=== PATIENT | male | born 1995 | race African-American/Black ===

== ENCOUNTER 2020-08-20 17:05 | Emergency (ER) | payer OTHER ==
[~2020-08-20] VITALS: Ht 182.9 cm; Wt 74.8 kg
--- NOTE | 2020-08-20 17:17 | NUR ---
pt arrives to ER with complaints of right upper abdominal pain. pt states pain is sharp and radiates to his back and groin. pt states history of hernia. pt denies diarrhea,constipation, and burning with urination.
[2020-08-20] MEDS ORDERED: Ketorolac 30mg Inj IV ONE (17:30)
--- NOTE | 2020-08-20 17:36 | Emergency Room Report ---
History of Present Illness General Chief Complaint: Abdominal Pain Source: Patient Present Illness HPI Patient is a 25-year-old male who presents to the ER with 2 different complaints. Patient states that he is primarily here for some right sided upper back pain that started 2 days ago. He states that he feels like it is under his ribs. He states it is worse when taking a deep breath. He denies any trauma. He denies any chest pain. He denies any shortness of breath. He states that it hurts when you touch that area as well. He denies any family history of PE or early cardiovascular disease. He denies any lower extremity pain or edema. He admits to smoking marijuana. Patient states that he has had 2 inguinal hernia repairs in the past 2 to 3 years ago. He states that he has had some pain on the right groin for a while now he says he feels some tightening there. He denies any dysuria, hematuria, difficulty urinating or abnormal penile discharge. He denies any lesions on his penis. He denies any constipation or diarrhea. He states he took Aleve earlier for pain relief. Allergies: Coded Allergies: No Known Allergies (Unverified , 08/20/20) COVID-19 Screening Contact w/high risk pt: No Experienced COVID-19 symptoms?: No COVID-19 Testing performed PACKAGER HAND: No COVID-19 Screening: Negative COVID-19 Patient History Reviewed Nursing Documentation: PMH: Agreed; PSxH: Agreed Nursing Documentation-PMH Hx Cardiac Problems: No Hx Hypertension: No Hx Pacemaker: No Hx Asthma: No Hx COPD: No Hx Diabetes: No Hx Cancer: No Hx Gastrointestinal Problems: Yes Hx Dialysis: No History Of Psychiatric Problem: No Hx Neurological Problems: No Hx Cerebrovascular Accident: No Hx Seizures: No Review of Systems All Other Systems: negative except mentioned in HPI Physical Exam Vital Signs Date Time Temp Pulse Resp B/P (MAP) Pulse Ox O2 Delivery O2 Flow Rate FiO2 08/20/20 17:12 99.0 51 18 127/71 (89) 96 Room Air Sp02 EP Interpretation: reviewed, normal General Appearance: no apparent distress, alert, GCS 15, non-toxic Head: normocephalic, atraumatic Eyes: bilateral eye normal inspection, bilateral eye PERRL ENT: hearing grossly normal, normal pharynx, no angioedema, normal voice Neck: full range of motion, supple/symm/no masses Respiratory: chest non-tender, lungs clear, other - R Sided latissimus dorsi tenderness to palpation no crepitus Cardiovascular #1: regular rate, rhythm, no edema Gastrointestinal: other - Right-sided inguinal tenderness to palpation right solitary inguinal lymphadenopathy Rectal: deferred Genitourinary: no CVA tenderness, other - Exam chaperoned by EMT Nael, no penile discharge or lesions no scrotal or testicular tenderness to palpation Neurologic: grants officer III-XII nml as tested, oriented x3 Psychiatric: no suicidal/homicidal ideation Skin: no rash Medical Decision Making Diagnostic Impression: Primary Impression: Muscle spasm Additional Impression: Inguinal lymphadenopathy ER Course Patient given IV Toradol. He states that it somewhat improved his pain. I have also given him Robaxin for presumed muscle spasm. Patient's chest x-ray demonstrates no acute cardiopulmonary pathology. His D-dimer is negative and has no risk factors for pulmonary embolism. Patient's labs demonstrate no significant acute abnormalities. Urinalysis demonstrates no evidence for UTI. CT abdomen pelvis demonstrates no acute intra-abdominal pathology. I discussed the right-sided inguinal lymphadenopathy with the patient. He states that he will follow-up with his surgeon who performed his hernia repairs. I also explained to him that I sent his urine for GC and chlamydia. He is given his his correct phone number we will contact him with any positive findings. After discussing risks and benefits of further diagnostics, treatment plans, as well as indications for and risks of admission, the patient is agreeable to being discharged home. I have explained that their evaluation and treatment in the e mergency department today is an important step towards them achieving better health but that their evaluation today is not intended to replace further evaluation and treatment by a physician in their local clinic. I have explained that while the current findings suggest no immediate life threatening emergency they will require further evaluation and treatment by a physician of their choice in their area. They understand that it will be necessary for them to review the final reports of their ED visit with their clinic physician. We have reviewed indications for return to the Emergency Department. I have explained that additional time may need to pass and/or additional testing as an outpatient may be necessary before a definitive diagnosis can be made. They tell me they are willing to follow up as instructed within the timeframe I recommend. They appear to understand what we discussed. Additionally they understand that if they are unable to be seen by an outpatient physician they are welcome, and in fact should, return to the Emergency Department for a repeat evaluation. The patient is stable at time of discharge. Laboratory Tests Test 08/20/20 17:22 White Blood Count 6.9 K/UL (4.8-10.8) Red Blood Count 5.91 M/UL (4.70-6.10) Hemoglobin 16.9 G/DL (14.2-18.0) Hematocrit 51.6 % (42.0-52.0) Mean Corpuscular Volume 87 FL (80-99) Mean Corpuscular Hemoglobin 28.7 PG (27.0-31.0) Mean Corpuscular Hemoglobin Concent 32.8 G/DL (32.0-36.0) Red Cell Distribution Width 11.3 % (11.6-14.8) L Platelet Count 247 K/UL (150-450) Mean Platelet Volume 7.0 FL (6.5-10.1) Neutrophils (%) (Auto) 66.8 % (45.0-75.0) Lymphocytes (%) (Auto) 24.0 % (20.0-45.0) Monocytes (%) (Auto) 7.5 % (1.0-10.0) Eosinophils (%) (Auto) 0.5 % (0.0-3.0) Basophils (%) (Auto) 1.3 % (0.0-2.0) Prothrombin Time 12.6 SEC (9.30-11.50) H Prothrombin Time INR 1.2 (0.9-1.1) H Activated Partial Thromboplast Time 27 SEC (23-33) D-Dimer < 0.19 mg/L FEU Urine Color Yellow Urine Appearance Clear Urine pH 6.5 (4.5-8.0) Urine Specific [place] 1.015 (1.005-1.035) Urine Protein Negative (NEGATIVE) Urine Glucose (UA) Negative (NEGATIVE) Urine Ketones Negative (NEGATIVE) Urine Blood Negative (NEGATIVE) Urine Nitrite Negative (NEGATIVE) Urine Bilirubin Negative (NEGATIVE) Urine Urobilinogen 1 MG/DL (0.0-1.0) H Urine Leukocyte Esterase Negative (NEGATIVE) Sodium Level 143 MMOL/L (136-145) Potassium Level 3.8 MMOL/L (3.5-5.1) Chloride Level 104 MMOL/L (98-107) Carbon Dioxide Level 29 MMOL/L (21-32) Anion Gap 10 mmol/L (5-15) Blood Urea Nitrogen 9 mg/dL (7-18) Creatinine 1.1 MG/DL (0.55-1.30) Estimated Glomerular Filtration Rate > 60 mL/min (>60) Glucose Level 92 MG/DL (74-106) Calcium Level 9.8 MG/DL (8.5-10.1) Magnesium Level 1.9 MG/DL (1.8-2.4) Total Bilirubin 0.7 MG/DL (0.2-1.0) Aspartate Amino Transferase (AST) 16 U/L (15-37) Alanine Aminotransferase (ALT) 22 U/L (12-78) Alkaline Phosphatase 64 U/L (46-116) Troponin I 0.010 ng/mL (0.000-0.056) Total Protein 8.6 G/DL (6.4-8.2) H Albumin 5.1 G/DL (3.4-5.0) H Globulin 3.5 g/dL Albumin/Globulin Ratio 1.5 (1.0-2.7) Lipase 92 U/L (73-393) Urine Opiates Screen Negative (NEGATIVE) Urine Barbiturates Screen Negative (NEGATIVE) Phencyclidine (PCP) Screen Negative (NEGATIVE) Urine Amphetamines Screen Negative (NEGATIVE) Urine Benzodiazepines Screen Negative (NEGATIVE) Urine Cocaine Screen Negative (NEGATIVE) Urine Marijuana (THC) Screen Positive (NEGATIVE) H Chlamydia trachomatis RNA Pending Neisseria gonorrhoeae RNA Pending Chest X-Ray Diagnostic Results Chest X-Ray Diagnostic Results : Chest X-Ray Ordered: Yes # of Views/Limited/Complete: 1 View Indication: Other - Upper back pain EP Interpretation: Yes Interpretation: no consolidation, no effusion, no pneumothorax, no acute cardiopulmonary disease Impression: No acute disease Electronically Signed by: Hamida Canas MD Last Vital Signs Date Time Temp Pulse Resp B/P (MAP) Pulse Ox O2 Delivery O2 Flow Rate FiO2 08/20/20 17:12 99.0 51 18 127/71 (89) 96 Room Air Disposition: HOME, SELF-CARE Condition: Stable Scripts Methocarbamol* (ROBAXIN-750*) 750 Mg Tablet 750 MG PO TID, #21 TAB 0 Refills Prov: Hamida Canas M.D. 08/20/20 Ibuprofen* (MOTRIN*) 600 Mg Tablet 600 MG ORAL FOUR TIMES A DAY, #30 TAB 0 Refills Prov: Hamida Canas M.D. 08/20/20 Additional Instructions: The patient was provided with discharge instructions, notified to follow-up with a primary care doctor and or specialist in the next 24-48 hours, and to return to the ED if they have worsening of their symptoms. Please note that this report is being documented using [employer] technology. This can lead to erroneous entry secondary to incorrect interpretation by the dictating instrument. Hamida Canas M.D. Aug 20, 2020 17:36
[2020-08-20 17:41] LABS: BASOPHILS % (AUTO) 1.3 % (0.0-2.0); EOSINOPHILS % (AUTO) 0.5 % (0.0-3.0); HEMATOCRIT 51.6 % (42.0-52.0); HEMOGLOBIN 16.9 G/DL (14.2-18.0); MEAN CORPUSCULAR VOLUME 87 FL (80-99); MONOCYTES % (AUTO) 7.5 % (1.0-10.0); NEUTROPHILS % (AUTO) 66.8 % (45.0-75.0); PLATELET COUNT 247 K/UL (150-450); RED BLOOD COUNT 5.91 M/UL (4.70-6.10); RED CELL DISTRIBUTION WIDTH 11.3 % (11.6-14.8); WHITE BLOOD COUNT 6.9 K/UL (4.8-10.8)
[2020-08-20 17:46] LABS: APPEARANCE,URINE CLEAR; BILIRUBIN, URINE NEGATIVE (NEGATIVE); GLUCOSE, URINE (UA) NEGATIVE (NEGATIVE); KETONES,URINE NEGATIVE (NEGATIVE); LEUKOCYTE ESTERASE ,URINE NEGATIVE (NEGATIVE); NITRITE,URINE NEGATIVE (NEGATIVE); PH,URINE 6.5 (4.5-8.0); PROTEIN,URINE NEGATIVE (NEGATIVE); UROBILINOGEN,URINE 1 MG/DL (0.0-1.0)
[2020-08-20 17:48] LABS: COLOR,URINE YELLOW
[2020-08-20 17:57] LABS: INR 1.2 (0.9-1.1); PARTIAL THROMBOPLASTIN TIME 27 SEC (23-33)
[2020-08-20 18:00] LABS: ALANINE AMINOTRANSFERASE 22 U/L (12-78); ALBUMIN 5.1 G/DL (3.4-5.0); ALBUMIN/GLOBULIN RATIO 1.5 (1.0-2.7); ALKALINE PHOSPHATASE 64 U/L (46-116); ANION GAP 10 mmol/L (5-15); ASPARTATE AMINO TRANSFERASE 16 U/L (15-37); BILIRUBIN,TOTAL 0.7 MG/DL (0.2-1.0); BLOOD UREA NITROGEN 9 mg/dL (7-18); CALCIUM 9.8 MG/DL (8.5-10.1); CARBON DIOXIDE 29 MMOL/L (21-32); CHLORIDE 104 MMOL/L (98-107); CREATININE 1.1 MG/DL (0.55-1.30); POTASSIUM 3.8 MMOL/L (3.5-5.1); SODIUM 143 MMOL/L (136-145)
[2020-08-20] MEDS ORDERED: Omnipaque 350 100ml vial INJ PRN (18:30)
--- NOTE | 2020-08-20 19:27 | Diagnostic Imaging Report ---
EXAM: CT Abdomen and Pelvis With Intravenous Contrast CLINICAL HISTORY: ABD PAIN TECHNIQUE: Axial computed tomography images of the abdomen and pelvis with intravenous contrast. CTDI is 4.1 mGy and DLP is 199.7 mGy-cm. One or more of the following dose reduction techniques were used: automated exposure control, adjustment of the mA and/or kV according to patient size, use of iterative reconstruction technique. COMPARISON: None. FINDINGS: Lung bases: Unremarkable. No mass. No consolidation. Mediastinum: Decompressed stomach with no hiatal hernia. ABDOMEN: Liver: Unremarkable. No mass. Gallbladder and bile ducts: Unremarkable. No calcified stones. No ductal dilation. Pancreas: Unremarkable. No mass. No ductal dilation. Spleen: Unremarkable. No splenomegaly. Adrenals: Unremarkable. No mass. Kidneys and ureters: Unremarkable. No solid mass. No hydronephrosis. Stomach and bowel: Nonspecific fecal debris within the colon. Mild nonspecific distention of the proximal small bowel loops with borderline thickening of the wall, cannot exclude mild enteritis. There is fluid within the ileum. PELVIS: Appendix: Normal appendix. Bladder: Unremarkable. No mass. Reproductive: Unremarkable as visualized. ABDOMEN and PELVIS: Intraperitoneal space: Unremarkable. No free air. No significant fluid collection. Bones/joints: No acute fracture. No dislocation. Soft tissues: Unremarkable. Vasculature: Unremarkable. No abdominal aortic aneurysm. Lymph nodes: Unremarkable. No enlarged lymph nodes. IMPRESSION: 1. No acute appendicitis or bowel obstruction. Cannot exclude mild nonspecific enteritis. 2. Unremarkable abdominal viscera.
[2020-08-20] MEDS ORDERED: IBUPROFEN600 M1 ORAL (19:32)
[2020-08-20] MEDS ORDERED: ROBAXIN-750750 MG PO (19:32)
[2020-08-20] MEDS ORDERED: Methocarbamol 750mg tab ORAL ONE (19:45)
[2020-08-20 19:49] VITALS: BP 127/71
--- NOTE | 2020-08-21 15:10 | Diagnostic Imaging Report ---
Indication: Reason For Exam: PAIN Technique: One view of the chest Comparison: none Findings: Lungs and pleural spaces are clear. Heart size is normal. Impression: No acute process
== END 2020-08-20 19:56 | disposition home or self-care (01) ==
LOC: EMR 17:32
DX: M62.838 Other muscle spasm (principal); R59.1 Generalized enlarged lymph nodes; F12.90 Cannabis use, unspecified, uncomplicated
CPT/HCPCS: 36415; 71045; 74177; 80053; 80307; 81003; 83690; 83735; 84484; 85025; 85379; 85610; 85730; 87491; 87590; 96361; 96374; 99284; J1885; J7030; Q9967